=== PATIENT | female | born 1965 | race Caucasian/White ===

== ENCOUNTER 2017-10-10 09:45 | Inpatient (IN) | payer OTHER ==
[~2017-10-10] VITALS: Ht 162.6 cm; Wt 96.2 kg
[2017-10-10] MEDS ORDERED: HYDROCHLOR PO (12:21)
[2017-10-10] MEDS ORDERED: ENALAPRIL MALEA10 MG PO (12:21)
[2017-10-10] MEDS ORDERED: TRAZODONE HCL150 MG PO ×2 (12:22→12:23)
[2017-10-10] MEDS ORDERED: ZOCOR20 MG PO (12:23)
[2017-10-10] MEDS ORDERED: AMILODIPINE PO (12:23)
[2017-10-10] MEDS ORDERED: BUPROPION XL300 MG PO (12:24)
[2017-10-10] MEDS ORDERED: MOBIC15 MG PO (12:25)
[2017-10-10] MEDS ORDERED: CLONAZEPAM2 MG PO (12:25)
== END 2017-10-21 15:21 | DRG 470 ==
LOC: O/R 10-19 06:00 → SURG 10-19 06:00
PROVIDERS: Orthopaedic Surgery
PROC: 0SRC0J9 Replacement of Right Knee Joint with Synthetic Substitute, Cemented, Open Approach (ICD-10-PCS; principal; 2017-10-19 09:00)
DX: M17.11 Unilateral primary osteoarthritis, right knee (principal); M81.0 Age-related osteoporosis without current pathological fracture

== ENCOUNTER 2018-02-14 08:00 | Inpatient (IN) | payer OTHER ==
[~2018-02-14] VITALS: Ht 162.6 cm; Wt 86.2 kg
[~2018-02-14 08:00] MED LIST: AMILODIPINE PO; BUPROPION XL300 MG PO; CLONAZEPAM2 MG PO; ENALAPRIL MALEA10 MG PO; HYDROCHLOR PO; MOBIC15 MG PO; TRAZODONE HCL150 MG PO; ZOCOR20 MG PO
== END 2018-02-24 15:48 | DRG 470 ==
LOC: O/R 02-22 06:00 → SURH 02-22 08:00 → SURG 02-22 14:17
PROVIDERS: Orthopaedic Surgery
PROC: 0SRD0J9 Replacement of Left Knee Joint with Synthetic Substitute, Cemented, Open Approach (ICD-10-PCS; principal; 2018-02-22 09:00)
DX: M17.12 Unilateral primary osteoarthritis, left knee (principal); M86.8X6 Other osteomyelitis, lower leg; M81.0 Age-related osteoporosis without current pathological fracture; R26.89 Other abnormalities of gait and mobility; I10 Essential (primary) hypertension; E78.00 Pure hypercholesterolemia, unspecified; F41.8 Other specified anxiety disorders